=== PATIENT | male | born 1985 | race Caucasian/White ===

== ENCOUNTER 2020-12-16 18:56 | Emergency (ER) | payer SELFPAY ==
[~2020-12-16] VITALS: Ht 188 cm; Wt 68.0 kg
[2020-12-16 19:30] VITALS: BP 135/83
[2020-12-16] MEDS ORDERED: RALT400T PO (19:54)
[2020-12-16] MEDS ORDERED: EMTR1TAB12 PO (19:54)
[2020-12-16] MEDS ORDERED: EMTRICITABINE/TENOFOVIR 1 TAB PO ONE (20:00)
[2020-12-16] MEDS ORDERED: RALTEGRAVIR POTASSIUM 400 MG TABLET PO ONE (20:00)
[2020-12-16 20:26] LABS: ALBUMIN 4.9 g/dL (3.4-5.0); BILIRUBIN,DIRECT 0.2 mg/dL (0.0-0.2); BILIRUBIN,TOTAL 0.7 mg/dL (0.2-1.0); TOTAL PROTEIN, SERUM 8.2 g/dL (6.4-8.2)
== END 2020-12-16 20:16 | disposition home or self-care (01) ==
LOC: ER 18:59
DX: S61.431A Puncture wound without foreign body of right hand, initial encounter (principal); Z77.21 Contact with and (suspected) exposure to potentially hazardous body fluids; W46.0XXA Contact with hypodermic needle, initial encounter; Y93.89 Activity, other specified; Y92.89 Other specified places as the place of occurrence of the external cause; Y99.8 Other external cause status
CPT/HCPCS: 36415; 80076-TC; 86706; 86803; 87806